=== PATIENT | female | born 1950 | race African-American/Black ===

== ENCOUNTER 2018-09-14 18:11 | Emergency (ER) | payer OTHER ==
[~2018-09-14] VITALS: Ht 180.3 cm; Wt 81.2 kg
[~2018-09-14 18:11] MED LIST: ATIVAN1 MG PO; ATIVAN2 MG PO; AVAPRO 150 MG150 MG PO; BENADRYL25 MG PO; CLARITIN10 MG PO; DIOVAN160 MG PO; LORTAB 5 MG/5001 TA1 PO; MUCINEX DM TABL1 TA1 PO; NORCO 5-325 TA1 EACH PO; PERCOCET 5-3251 EACH PO; TESSALON PERLE100 MG PO; ZPAK PO
[2018-09-14 19:09] LABS: URINE BILIRUBIN NEGATIVE (Negative); URINE BLOOD 2+ (Negative); URINE CLARITY CLEAR; URINE COLOR YELLOW; URINE GLUCOSE-RANDOM* NEGATIVE (Negative); URINE KETONES NEGATIVE (Negative); URINE LEUKOCYTES-REFLEX NEGATIVE (Negative); URINE NITRITE-REFLEX NEGATIVE (Negative); URINE PROTEIN (DIPSTICK) NEGATIVE (Negative); URINE SPECIFIC GRAVITY <= 1.005 (1.005-1.035); URINE UROBILINOGEN 0.2 E.U./dl (0.2-1.0)
[2018-09-14 19:20] LABS: BACTERIA-REFLEX 1-9 Few /HPF (None Seen); CASTS None Seen /LPF (None Seen); CRYSTALS None Seen /LPF (None Seen); SQUAMOUS 0-3 Few /LPF (0-3); URINE RBC 0-2 Rare /HPF (0-2); URINE WBC-REFLEX None Seen /HPF (0-5)
[2018-09-14 19:46] LABS: ABSOLUTE NEUTROPHILS 1.9 thou/uL (1.4-8.2); BASOPHILS 1.3 % (0.0-2.0); EOSINOPHILS 4.4 % (0.0-3.0); HEMATOCRIT 35.8 % (37.0-47.0); HEMOGLOBIN 12.2 gm/dL (12.0-15.0); LYMPHOCYTES 44.7 % (24.0-44.0); MCH 31.9 pg (26.0-34.0); MCV 93.9 fL (80.0-100.0); MONOCYTES 7.2 % (1.0-8.0); POLYS 42.4 % (36.0-66.0); RBC 3.81 mil/uL (4.20-5.00); WBC 4.6 thou/uL (4.0-11.0)
[2018-09-14 19:55] LABS: ANION GAP 7 mmol/L (7-16); BUN 4 mg/dL (7-18); CHLORIDE 90 mmol/L (98-107); CO2 27 mmol/L (21-32); CREATININE 0.7 mg/dL (0.6-1.0); GLUCOSE 96 mg/dL (74-106); SODIUM 124 mmol/L (136-145)
[2018-09-14 20:04] LABS: ALBUMIN 3.6 g/dL (3.4-5.0); DIRECT BILIRUBIN < 0.1 mg/dL (<0.1-0.3); LIPASE 64 U/L (73-393); SGOT 16 U/L (15-37); SGPT 17 U/L (30-65); TOTAL BILIRUBIN 0.3 mg/dL (<0.1-1.0); TOTAL PROTEIN 7.2 g/dL (6.4-8.2); TROPONIN-I <0.06 ng/mL (<0.06)
[2018-09-14 20:15] LABS: PLATELET COUNT 180 thou/uL (150-400)
[2018-09-14 22:44] VITALS: BP 151/66
--- NOTE | 2018-09-15 09:08 | EKG ---
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1950 Requested By: Nasrin Castaneda Order Number: [id number] MD: Tomasz Logan Measurements Intervals [place] Rate: 45 P: 59 [place]: 214 QRS: 71 QRSD: 110 T: 206 QT: 515 QTc: 446 Interpretive Statements Sinus bradycardia Abnormal T, consider ischemia, diffuse leads Compared to ECG 03/25/2010 07:17:45 T-wave abnormality now present Heart rate has slowed Electronically Signed On 09-15-2018 9:07:50 [employer] by Tomasz Logan [email or web address] ��������������������������������������������� <ELECTRONICALLY SIGNED> ���������������������������������������� By: Tomasz Logan MD, [facility] ��������������������������������������������� 09/15/18906 53 54 Tomasz Logan MD, [facility] /EPI
== END 2018-09-14 22:44 | disposition home or self-care (01) ==
LOC: ER 18:11
PROVIDERS: Emergency Medicine
DX: R31.9 Hematuria, unspecified (principal); E87.1 Hypo-osmolality and hyponatremia; R10.9 Unspecified abdominal pain; F17.210 Nicotine dependence, cigarettes, uncomplicated; I10 Essential (primary) hypertension; K21.9 Gastro-esophageal reflux disease without esophagitis; Z88.2 Allergy status to sulfonamides

== ENCOUNTER 2018-10-14 01:03 | Emergency (ER) | payer BC ==
[~2018-10-14] VITALS: Ht 180.3 cm; Wt 82.6 kg
[2018-10-14 01:52] LABS: ABSOLUTE NEUTROPHILS 2.4 thou/uL (1.4-8.2); BASOPHILS 0.9 % (0.0-2.0); EOSINOPHILS 3.5 % (0.0-3.0); HEMATOCRIT 38.1 % (37.0-47.0); HEMOGLOBIN 13.3 gm/dL (12.0-15.0); LYMPHOCYTES 45.7 % (24.0-44.0); MCHC 34.8 g/dL (28.0-37.0); MCV 91.9 fL (80.0-100.0); MONOCYTES 7.1 % (1.0-8.0); PLATELET COUNT 247 thou/uL (150-400); POLYS 42.8 % (36.0-66.0); RBC 4.15 mil/uL (4.20-5.00); RDW 13.8 % (10.5-14.5); WBC 5.7 thou/uL (4.0-11.0)
[2018-10-14 02:00] LABS: ANION GAP 5 mmol/L (7-16); BUN 4 mg/dL (7-18); CALCIUM 9.5 mg/dL (8.5-10.1); CHLORIDE 87 mmol/L (98-107); CO2 30 mmol/L (21-32); CREATININE 0.7 mg/dL (0.6-1.0); GLUCOSE 98 mg/dL (74-106); POTASSIUM 3.4 mmol/L (3.5-5.1); SODIUM 122 mmol/L (136-145)
[2018-10-14 02:08] LABS: TROPONIN-I <0.06 ng/mL (<0.06)
[2018-10-14 03:28] LABS: URINE BILIRUBIN NEGATIVE (Negative); URINE BLOOD NEGATIVE (Negative); URINE CLARITY CLEAR; URINE COLOR YELLOW; URINE GLUCOSE-RANDOM* NEGATIVE (Negative); URINE KETONES NEGATIVE (Negative); URINE LEUKOCYTES NEGATIVE (Negative); URINE NITRITE NEGATIVE (Negative); URINE PROTEIN (DIPSTICK) NEGATIVE (Negative); URINE SPECIFIC GRAVITY <= 1.005 (1.005-1.035); URINE UROBILINOGEN 0.2 E.U./dl (0.2-1.0)
[2018-10-14] MEDS ORDERED: CLONIDINE HCL0.3 M3 PO (03:43)
[2018-10-14 03:51] VITALS: BP 127/68
--- NOTE | 2018-10-15 13:34 | EKG ---
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1950 Requested By: Anna Carney Order Number: [id number] MD: Tomasz Logan Measurements Intervals [place] Rate: 76 P: 49 NE: 238 QRS: 63 QRSD: 111 T: 241 QT: 400 QTc: 450 Interpretive Statements Sinus rhythm Prolonged NE interval Nonspecific ST and T wave abnormality Compared to ECG 09/14/2018 19:54:11 T wave abnormality is less pronounced sinus bradycardia no longer present Electronically Signed On 10-15-2018 13:34:47 CDT by Tomasz Logan [email or web address] ��������������������������������������������� <ELECTRONICALLY SIGNED> ���������������������������������������� By: Tomasz Logan MD, [facility] ��������������������������������������������� 10/15/18 [id number] Tomasz Logan MD, [facility] /EPI
== END 2018-10-14 03:55 | disposition home or self-care (01) ==
LOC: ER 01:03
PROVIDERS: Student in an Organized Health Care Education/Training Program
DX: I10 Essential (primary) hypertension (principal); K21.9 Gastro-esophageal reflux disease without esophagitis; Z88.2 Allergy status to sulfonamides

== ENCOUNTER 2019-02-23 19:22 | Emergency (ER) | payer OTHER ==
[~2019-02-23] VITALS: Ht 170.2 cm; Wt 72.6 kg
[~2019-02-23 19:22] MED LIST changes: +CLONIDINE HCL0.3 M3 PO
[2019-02-23] MEDS ORDERED: CLARITIN10 MG PO (19:32)
[2019-02-23] MEDS ORDERED: CATAPRES0.2 MG PO (19:33)
[2019-02-23] MEDS ORDERED: ASPIR-LOW81 MG PO (19:33)
[2019-02-23 22:00] VITALS: BP 169/82
== END 2019-02-23 22:00 | disposition home or self-care (01) ==
LOC: ER 19:22
DX: K22.2 Esophageal obstruction (principal); I10 Essential (primary) hypertension; K21.9 Gastro-esophageal reflux disease without esophagitis; F17.210 Nicotine dependence, cigarettes, uncomplicated; Z88.2 Allergy status to sulfonamides

== ENCOUNTER 2020-01-04 16:06 | Emergency (ER) | payer OTHER ==
[~2020-01-04] VITALS: Ht 180.3 cm; Wt 78.0 kg
[~2020-01-04 16:06] MED LIST changes: +ASPIR-LOW81 MG PO; +CATAPRES0.2 MG PO
[2020-01-04] MEDS ORDERED: CLONIDINE HCL0.2 M2 PO (16:31)
[2020-01-04] MEDS ORDERED: LORAZEPAM 2MG TA2 M1 PO (16:32)
[2020-01-04] MEDS ORDERED: NORCO 5-325 TA1 EAC1 PO (17:29)
[2020-01-04 17:41] VITALS: BP 124/80
== END 2020-01-04 17:41 | disposition home or self-care (01) ==
LOC: ER 16:06
DX: S52.122A Displaced fracture of head of left radius, initial encounter for closed fracture (principal); M25.532 Pain in left wrist; M25.512 Pain in left shoulder; I10 Essential (primary) hypertension; K21.9 Gastro-esophageal reflux disease without esophagitis; F17.210 Nicotine dependence, cigarettes, uncomplicated; Z88.2 Allergy status to sulfonamides; Z79.82 Long term (current) use of aspirin; Z79.899 Other long term (current) drug therapy; W18.30XA Fall on same level, unspecified, initial encounter; Y93.89 Activity, other specified; Y92.89 Other specified places as the place of occurrence of the external cause; Y99.9 Unspecified external cause status

== ENCOUNTER 2021-02-25 15:30 | Emergency (ER) | payer MEDICARE ==
[~2021-02-25] VITALS: Ht 180.3 cm; Wt 79.8 kg
[~2021-02-25 15:30] MED LIST changes: +CLONIDINE HCL0.2 M2 PO; +LORAZEPAM 2MG TA2 M1 PO; +NORCO 5-325 TA1 EAC1 PO
[2021-02-25 15:36] VITALS: BP 134/85
[2021-02-25] MEDS ORDERED: TESSALON PERLE100 MG PO (17:13)
== END 2021-02-25 17:23 | disposition home or self-care (01) ==
LOC: ER 15:30
PROVIDERS: Nurse Practitioner
DX: U07.1 COVID-19 (principal); R50.9 Fever, unspecified; R05 Cough; I10 Essential (primary) hypertension; K21.9 Gastro-esophageal reflux disease without esophagitis; F17.210 Nicotine dependence, cigarettes, uncomplicated; Z79.891 Long term (current) use of opiate analgesic; Z79.82 Long term (current) use of aspirin; Z79.899 Other long term (current) drug therapy; Z88.2 Allergy status to sulfonamides